=== PATIENT | male | born 1960 | race Caucasian/White ===

== ENCOUNTER 2016-04-22 07:01 | Outpatient (CLI) | payer SELFPAY ==
[~2016-04-22] VITALS: Ht 180.3 cm; Wt 102.5 kg
[~2016-04-22 07:01] MED LIST: ASP81CT PO; DCS100C PO; HYDR-3454 PO; METO50TA7 PO; PRAV80TA2 PO
--- OUTSIDE RECORDS SUMMARY | 2016-04-22 07:06 | XMS REPORT | Continuity of Care Document ---
Author Author [facility] Organization [facility] Address Unknown Phone Unavailable Care Team Providers Care Summer Law Associate Name Role Phone PRAFUL DODD MD PCP Insurance Providers Payer Name Policy Number Subscriber Name Relationship Self Pay Jem Dennis 18 Self / Same As Patient Advance Directives Directive Response Recorded Date/Time Advance Directives No 11/01/13 8:42am Health Care Power of Assurance Manager Insurance No 11/01/13 8:42am Organ Donor No 11/01/13 8:42am Resuscitation Status Full Code 11/01/13 8:42am Problems No known problems or medical conditions. Medications Medication Dose Route Sig Days/Qty Instructions Order Date Discontinued Date Status Aspirin 81 Mg PO DAILY 07/03/10 08/07/13 Discontinued Metoprolol Succinate 50 Mg PO DAILY 07/03/10 08/07/13 Discontinued Pravastatin Sodium 40 Mg PO DAILY 07/03/10 08/07/13 Discontinued Docusate Sodium 1 Cap PO TWICE A DAY PRN CONSTIPATION 60 Qty 11/01/13 Active Hydrocodone Bit/Acetaminophen 1 Tab PO EVERY 4HRS PRN PAIN 30 Qty 11/01 Active Social History Social History Problem Response Recorded Date/Time Smoking Status Never a Smoker 11/01/2013 8:41am Query Response Start Date Stop Date Smoking Status Never a Smoker Hospital Discharge Instructions No hospital discharge instructions. Plan of Care No plan of care. Functional Status No functional status results. Allergies, Adverse Reactions, Alerts Allergen Type Severity Reaction Status Last Updated No Known Drug Allergies Active 07/02/10 Immunizations No immunization records. Vital Signs Acute Vital Signs Vital Response Date/Time Temperature (Fahrenheit) 98.0 degrees F (97.6 - 99.5) Temperature (Calculated Celsius) 36.57489 degrees C (36.4 - 37.5) Temperature Source Tympanic Pulse Rate (adult) 65 bpm (60 - 90) Respiratory Rate 16 bpm (12 - 24) O2 Sat by Pulse Oximetry 99 % (88 - 100) Blood Pressure 120/82 mm Hg Pain Pain Intensity 0 Height (Feet) 5 feet Height (Inches) 11.00 inches Height (Calculated Centimeters) 180.424260 cm Weight (Pounds) 226 pounds Weight (Calculated Grams) 081410.877 gm Weight (Calculated Kilograms) 102.207709 kilograms Height 5 ft 11 in Weight 226 lb Body Mass Index 31.5 kg/m^2 Results Test Source Date Result Interp. Ref. Range Comments Activated Partial Thromboplast Time July 02, 2010 5:00pm 26 SEC N 24- 35 Alanine Aminotransferase (ALT/SGPT) July 03, 2010 5:45am 59 U/L N 30- 65 Albumin July 03, 2010 5:45am 3.4 G/DL N 3.4-5.0 Alkaline Phosphatase July 03, 2010 5:45am 43 U/L L 50-136 Aspartate Amino Transf (AST/SGOT) July 03, 2010 5:45am 24 U/L N 15-37 BUN/Creatinine Ratio July 03, 2010 5:45am 14 - Basophils # (Auto) October 31, 2013 8:30am 0.0 10^3/uL N 0.0-0.1 Basophils (%) (Auto) October 31, 2013 8:30am 0 % N 0-10 Blood Urea Nitrogen July 03, 2010 5:45am 15 MG/DL N 7-18 Calcium Level July 03, 2010 5:45am 8.4 MG/DL L 8.5-10.1 Carbon Dioxide Level July 03, 2010 5:45am 26 MMOL/L N 21-32 Chloride Level July 03, 2010 5:45am 107 MMOL/L N 101-110 Cholesterol Level July 03, 2010 5:45am 221 MG/DL H -200 Creatinine July 03, 2010 5:45am 1.1 MG/DL N 0.6-1.3 Eosinophils # (Auto) October 31, 2013 8:30am 0.2 10^3/uL N 0.0-0.3 Eosinophils (%) (Auto) October 31, 2013 8:30am 3 % N 0-10 Glucose Level July 03, 2010 5:45am 98 MG/DL N 70-126 HDL Cholesterol July 03, 2010 5:45am 31 MG/DL L 35-60 Hematocrit October 31, 2013 8:30am 42 % N 40-54 Hemoglobin October 31, 2013 8:30am 14.4 G/DL N 13.3-17.7 LDL Cholesterol July 03, 2010 5:45am 160 MG/DL H 0-129 Lymphocytes # (Auto) October 31, 2013 8:30am 2.7 X 10^3 N 1.0-4.0 Lymphocytes (%) (Auto) October 31, 2013 8:30am 41 % N 12-44 Magnesium Level July 02, 2010 5:00pm 2.0 MG/DL N 1.8-2.4 Mean Corpuscular Hemoglobin October 31, 2013 8:30am 32 PG N 25-34 Mean Corpuscular Hemoglobin Concent October 31, 2013 8:30am 35 G/DL N 32- 36 Mean Corpuscular Volume October 31, 2013 8:30am 94 FL N 80-99 Mean Platelet Volume October 31, 2013 8:30am 10.7 FL H 7.4-10.4 Monocytes # (Auto) October 31, 2013 8:30am 0.7 X 10^3 N 0.0-1.0 Monocytes (%) (Auto) October 31, 2013 8:30am 10 % N 0-12 Myoglobin July 02, 2010 5:00pm 62 UG/L N 10-92 Neutrophils # (Auto) October 31, 2013 8:30am 3.1 X 10^3 N 1.8-7.8 Neutrophils (%) (Auto) October 31, 2013 8:30am 47 % N 42-75 Platelet Count October 31, 2013 8:30am 191 10^3/uL N 130-400 Potassium Level July 03, 2010 5:45am 4.3 MMOL/L N 3.6-5.0 Prothromb Time International Ratio July 02, 2010 5:00pm 1.0 N 0.8-1.4 INTERPRETIVE DATASUGGESTED THERAPEUTIC RANGE FOR INR'S: VENOUS THROMBOSIS, PULMONARY EMBOLISM, OR PREVENTION OF SYSTEMIC EMBOLISM (EG. IN ATRIAL FIBRILLATION): 2.0 - 3.0 MECHANICAL PROSTHETIC HEART VALVES: 2.5 - 3.5* *NOTE: INR'S UP TO 4.5 MAY BE NECESSARY IN SELECTED GROUPS OF HIGH RISK PATIENTS. SIXTH [place] [employer]ST [employer]ANS CONSENSUS CONFERENCE ON ANTITHROMBOTIC THERAPY (2000). Prothrombin Time July 02, 2010 5:00pm 13.4 SEC N 12.2-14.7 Red Blood Count October 31, 2013 8:30am 4.45 10^6/uL N 4.35-5.85 Red Cell Distribution Width October 31, 2013 8:30am 12.9 % N 10.0-14.5 Sodium Level July 03, 2010 5:45am 140 MMOL/L N 135-145 Thyroid Stimulating Hormone (TSH) July 03, 2010 5:45am 0.87 UIU/ML N 0.34-5.60 Total Bilirubin July 03, 2010 5:45am 0.6 MG/DL N 0.0-1.0 Total Protein July 03, 2010 5:45am 6.6 G/DL N 6.4-8.2 Triglycerides Level July 03, 2010 5:45am 149 MG/DL N 30.0-150.0 Troponin I July 03, 2010 5:45am < 0.10 MG/ML 0.00-0.10 VLDL Cholesterol July 03, 2010 5:45am 30 MG/DL N 5-40 White Blood Count October 31, 2013 8:30am 6.7 10^3/uL N 4.3-11.0 Lab Scanned Report July 03, 2010 11:55am Referred Lab Report [id number] - Estimat Glomerular Filtration Rate July 02, 2010 5:00pm > 60 - GFR INTERPRETIVE DATA UNITS FOR ESTIMATED GFR (eGFR): mL/min/1.73 M2 REFERENCE RANGE FOR ESTIMATED GFR (eGFR) eGFR NORMAL eGFR >60 MODERATELY DECREASED eGFR 30-59 SEVERLY DECREASED eGFR 15-29 KIDNEY FAILURE <15 (OR DIALYSIS) Creatine Kinase July 03, 2010 5:45am 85 U/L N 1-205 Cardiac Panel Pathologist Review July 02, 2010 5:00pm SEE CARDIAC PATH REV - MRSA Screen Nasal August 07, 2013 3:20pm MRSA not isolated Procedures Procedure Status Date Provider(s) Repair of umbilical hernia in adult completed 11/01/13 ISAÍAS RICH DO Encounters Encounter Location Date/Time Registered Clinic Via [facility] 10/31/13 8:09am
== END 2016-04-22 15:06 ==
LOC: PREOP 07:01
PROVIDERS: ATTEND Internal Medicine
DX: Z01.818 Encounter for other preprocedural examination (principal); Z12.11 Encounter for screening for malignant neoplasm of colon

== ENCOUNTER → 2016-04-23 | Day surgery (SDC) | payer BC ==
[~2016-04-23] VITALS: Ht 180.3 cm; Wt 102.5 kg
[~2016-04-23] MED LIST changes: +1/2 NS IV SOLUTION 1,000 ML IV STA; +FLUMAZENIL (ROMAZICON) 0.1 MG/ML 5 ML VIAL INJ PRN; +LIDOCAINE JELLY 2% (XYLOCAINE) 5 ML TUBE MM PRN; +LIDOCAINE JELLY 2% (XYLOCAINE) 5 ML TUBE ONE; +MIDAZOLAM 2 MG/2 ML (VERSED) VIAL IVP PRN; +MIDAZOLAM 2 MG/2 ML (VERSED) VIAL ONE; +NALOXONE 0.4 MG/ML 1 ML (NARCAN) VIAL IVP PRN; +NS (IVPB) 50 ML ONE; +ceFAZolin 1,000 MG (ANCEF) VIAL ONE; +ceFAZolin INJECTION 1,000 MG in NS (IVPB) 50 ML IV ONE; +fentaNYL INJECTION 100 MCG/2 ML AMP ONE
--- OUTSIDE RECORDS SUMMARY | 2016-04-23 08:12 | XMS REPORT | Continuity of Care Document ---
Author Author [facility] Organization [facility] Address Unknown Phone Unavailable Care Team Providers Care Sea Shell Gatherer Name Role Phone PRAFUL DODD MD PCP Insurance Providers Payer Name Policy Number Subscriber Name Relationship Self Pay Jem Dennis 18 Self / Same As Patient Advance Directives Directive Response Recorded Date/Time Advance Directives No 11/01/13 8:42am Health Care Power of Emergency Response Coordinator No 11/01/13 8:42am Organ Donor No 11/01/13 [...] F (97.6 - 99.5) Temperature (Calculated Celsius) 36.89038 degrees C (36.4 - 37.5) Temperature Source Tympanic Pulse Rate (adult) 65 bpm (60 - 90) Respiratory Rate 16 bpm (12 - 24) O2 Sat by Pulse Oximetry 99 % (88 - 100) Blood Pressure 120/82 mm Hg Pain Pain Intensity 0 Height (Feet) 5 feet Height (Inches) 11.00 inches Height (Calculated Centimeters) 180.502115 cm Weight (Pounds) 226 pounds Weight (Calculated Grams) 067656.877 gm Weight (Calculated Kilograms) 102.011729 kilograms Height 5 ft 11 in Weight [...] SELECTED GROUPS OF HIGH RISK PATIENTS. SIXTH [place] [employer] CONSENSUS CONFERENCE ON [...] July 03, 2010 11:55am Referred Lab Report [id number] - Estimat Glomerular Filtration Rate July 02, [...] Encounters Encounter Location Date/Time Registered Clinic Via [facility] 10/31/13 8:09am
--- OUTSIDE RECORDS SUMMARY | 2016-04-23 08:15 | XMS REPORT | Continuity of Care Document ---
Author Author [facility] Organization [facility] Address Unknown Phone Unavailable Care Team Providers Care Domestic Maid Name Role Phone PRAFUL DODD MD PCP Insurance Providers Payer Name Policy Number Subscriber Name Relationship Self Pay Jem Dennis 18 Self / Same As Patient Advance Directives Directive Response Recorded Date/Time Advance Directives No 11/01/13 8:42am Health Care Power of Industrial Rehabilitation Consultant No 11/01/13 8:42am Organ Donor No 11/01/13 [...] F (97.6 - 99.5) Temperature (Calculated Celsius) 36.03131 degrees C (36.4 - 37.5) Temperature Source Tympanic Pulse Rate (adult) 65 bpm (60 - 90) Respiratory Rate 16 bpm (12 - 24) O2 Sat by Pulse Oximetry 99 % (88 - 100) Blood Pressure 120/82 mm Hg Pain Pain Intensity 0 Height (Feet) 5 feet Height (Inches) 11.00 inches Height (Calculated Centimeters) 180.406615 cm Weight (Pounds) 226 pounds Weight (Calculated Grams) 038147.877 gm Weight (Calculated Kilograms) 102.794279 kilograms Height 5 ft 11 in Weight [...] SELECTED GROUPS OF HIGH RISK PATIENTS. SIXTH [place] COL[employer] OF CHEST PH[employer]ICIANS CONSENSUS CONFERENCE ON [...] July 03, 2010 11:55am Referred Lab Report [id number] - Estimat Glomerular Filtration Rate July 02, [...] Encounters Encounter Location Date/Time Registered Clinic Via [facility] 10/31/13 8:09am
[2016-04-23 09:13] VITALS: BP 115/86
--- NOTE | 2016-04-23 09:30 | Pre-Op Note & Conscious Sedat ---
Pre-Operative Progress Note H&P Reviewed The H&P was reviewed, patient examined and no changes noted. Date H&P Reviewed: Apr 23, 2016 Time H&P Reviewed: 09:26 Conscious Sedation Pre-Proced ASA Class: 2 Airway Mallampati Classification: (nikolai appropriate class) I. II. III, IV Lungs Heart ASA score ASA 1: a normal healthy patient ASA 2: a patient with a mild systemic disease (mid diabetes, controlled hypertension, obesity ASA 3: a patient with a severe systemic disease that limits activity (angina , COPD, prior Myocardial infarction) ASA 4: a patient with an incapacitating disease that is a constant threat to life (CHF, renal failure) ASA 5: a moribund patient not expected to survive 24 hrs. (ruptured aneurysm) ASA 6: a declared brain patient whose organs are being harvested. For emergent operations, add the letter E after the classification Grade 3 Sedation Plan: Analgesia, Amnesia, Plan communicated to team members, Discussed options with patient/fam, Discussed risks with patient/fam Note The patient is an appropriate candidate to undergo the planned procedure, sedation, and anesthesia. The patient immediately re-assessed prior to indication. JORGE FONSECA MD Apr 23, 2016 09:30
[2016-04-23] MEDS: fentaNYL INJECTION 100 MCG/2 ML AMP IVP PRN ×2 (09:36→09:39)
[2016-04-23 10:25] VITALS: BP 113/75
[2016-04-23 11:00] VITALS: BP 114/82
[2016-04-23 13:02] VITALS: BP 114/82
--- NOTE | 2016-04-25 12:30 | PROCEDURE REPORT ---
PROCEDURE PHYSICIAN: JORGE FONSECA DATE OF PROCEDURE: 04/23/2016 INDICATION FOR THE PROCEDURE: Screening colonoscopy. PROCEDURE: The patient was placed in the left lateral decubitus position. Prior to undergoing colonoscopy, digital rectal evaluation was performed. Anal sphincter tone was normal and the perianal reflex was intact. The prostate was normal in size, anodular and nontender to digital inspection. Anal sphincter tone was normal and no other abnormalities were noted to digital inspection of the anal canal or distal rectal vault. The colonoscope was then inserted into the rectum and under direct visualization, advanced to cecum. The cecum was identified by identification of the ileocecal valve and cecal strap. Photographic patient was obtained. A careful inspection was made as the colonoscope was withdrawn. The patient tolerated the procedure well. FINDINGS: There no evidence for internal or external hemorrhoids. The rectum was unremarkable. Present in the distal sigmoid colon was a diminutive hyperplastic appearing polyp. It was photographed, biopsied and ablated, with no subsequent blood loss and it was submitted for histopathology. Several small sigmoid diverticulum were present, without evidence for diverticulitis. No other sigmoid colonic abnormalities were appreciated. The descending colon, splenic flexure, transverse colon were unremarkable. Present at the hepatic flexure was a diminutive hyperplastic appearing polyp. It was photographed, biopsied and ablated, and submitted for histopathology. There was no subsequent blood loss. The ascending colon and cecum were unremarkable. ASSESSMENT: 1. Mild diverticular disease was noted confined to the sigmoid colon without evidence for diverticulitis. 2. Two diminutive hyperplastic appearing polyps were noted and subsequently removed via hot forceps and submitted for histopathology. One located in the hepatic flexure and the other in the distal sigmoid colon. 3. As long as there are no surprises on histopathology report, will advocate consideration for repeat screening colonoscopy in 10 years. Job ID: [id number] Dictated Date: 04/23/2016 19:20:37 Creative Arts Therapist Date: 04/25/2016 12:25:09 / victorina YANEZ
== END | disposition home or self-care (01) ==
LOC: ENDO 08:09
PROVIDERS: ATTEND Internal Medicine
DX: Z12.11 Encounter for screening for malignant neoplasm of colon (principal); K63.5 Polyp of colon; K57.30 Diverticulosis of large intestine without perforation or abscess without bleeding
CPT/HCPCS: 88305

== ENCOUNTER → 2016-04-26 | Outpatient (CLI) | payer BC ==
[~2016-04-26] MED LIST changes: -1/2 NS IV SOLUTION 1,000 ML IV STA; -FLUMAZENIL (ROMAZICON) 0.1 MG/ML 5 ML VIAL INJ PRN; -LIDOCAINE JELLY 2% (XYLOCAINE) 5 ML TUBE MM PRN; -LIDOCAINE JELLY 2% (XYLOCAINE) 5 ML TUBE ONE; -MIDAZOLAM 2 MG/2 ML (VERSED) VIAL IVP PRN; -MIDAZOLAM 2 MG/2 ML (VERSED) VIAL ONE; -NALOXONE 0.4 MG/ML 1 ML (NARCAN) VIAL IVP PRN; -NS (IVPB) 50 ML ONE; -ceFAZolin 1,000 MG (ANCEF) VIAL ONE; -ceFAZolin INJECTION 1,000 MG in NS (IVPB) 50 ML IV ONE; -fentaNYL INJECTION 100 MCG/2 ML AMP ONE
--- OUTSIDE RECORDS SUMMARY | 2016-04-26 09:58 | XMS REPORT | Continuity of Care Document ---
Author Author [facility] Organization [facility] Address Unknown Phone Unavailable Care Team Providers Care Rouge Mixer Name Role Phone PRAFUL DODD MD PCP Insurance Providers Payer Name Policy Number Subscriber Name Relationship Self Pay Jem Dennis 18 Self / Same As Patient Advance Directives Directive Response Recorded Date/Time Advance Directives No 11/01/13 8:42am Health Care Power of Small Business Banking Officer No 11/01/13 8:42am Organ Donor No 11/01/13 [...] F (97.6 - 99.5) Temperature (Calculated Celsius) 36.59320 degrees C (36.4 - 37.5) Temperature Source Tympanic Pulse Rate (adult) 65 bpm (60 - 90) Respiratory Rate 16 bpm (12 - 24) O2 Sat by Pulse Oximetry 99 % (88 - 100) Blood Pressure 120/82 mm Hg Pain Pain Intensity 0 Height (Feet) 5 feet Height (Inches) 11.00 inches Height (Calculated Centimeters) 180.562671 cm Weight (Pounds) 226 pounds Weight (Calculated Grams) 240996.877 gm Weight (Calculated Kilograms) 102.088287 kilograms Height 5 ft 11 in Weight [...] SELECTED GROUPS OF HIGH RISK PATIENTS. SIXTH [place] [employer] OF CHEST PHYSICIANS CONSENSUS CONFERENCE ON [...] July 03, 2010 11:55am Referred Lab Report [id number] - Estimat Glomerular Filtration Rate July 02, [...] Encounters Encounter Location Date/Time Registered Clinic [facility] 10/31/13 8:09am
--- NOTE | 2016-04-29 12:12 | ECHOCARDIOGRAPHY REPORT ---
PROCEDURE PHYSICIAN: JORGE FONSECA DATE OF PROCEDURE: 04/26/2016 TWO DIMENSIONAL ECHOCARDIOGRAM REPORT PRIMARY PHYSICIAN: OTHER PHYSICIAN: REFERRING PHYSICIAN: ORDERING PHYSICIAN: INDICATION FOR THE PROCEDURE: History of bicuspid aortic valve with aortic stenosis, follow-up study MEASUREMENTS DERIVED VALUES LV DIAMETER (LAX) NORMALS NORMALS Diastolic 5.4 (3.6-5.2) Eject. Fract. 0.60 (60%+/-6%) Systolic 3.7 (2.3-3.9) Diastolic Vol. % Shortening 0.30 (0.22-0.42) Systolic Vol. Aortic Root IVS THICKNESS Diastolic 1.5 (0.6-1.1) LVPW THICKNESS Diastolic 1.4 (0.6-1.1) LA DIAMETER Systolic 4. (2.1-3.7) COMMENTS AND RECOMMENDATIONS: 1. Fair technical quality. 2. Biventricular systolic function is normal with an estimated left ventricular ejection fraction of 60%. No segmental wall motion abnormalities are identified. 3. Moderate concentric left ventricular hypertrophy is present. 4. The aortic valve is heavily calcified and not well visualized. Continuous wave Doppler waveforms are of good quality and moderate to severely elevated with a peak gradient of 95 and a mean gradient of 63 mmHg giving a calculated valve area of 1 sq cm indicative of severe aortic stenosis. There has been progression since his patient's last study done in 2010. Aortic insufficiency judged to be of mild severity is present. 5. Mild mitral and tricuspid insufficiency are present. Right ventricular systolic pressure is estimated at 30 mmHg. The inferior vena cava is dilated at 2.4 cm in diameter, but does collapse more than 50% on inspiration. 6. The left atrium is mildly dilated. The left ventricle is at the upper limits normal with normal right-sided cardiac chamber dimensions. 7. Doppler interrogation of left ventricular inflow does suggest underlying diastolic dysfunction. The E:A ration was 1. 8. Moderate mitral annular calcification is present. There is no evidence for mitral stenosis. No significant tricuspid or pulmonic valve abnormalities were noted on 2-D viewing, color flow or continuous wave Doppler interrogation. 9. There is no evidence for intracardiac shunt. 10. There is no evidence for pericardial effusion. ASSESSMENT: Biventricular systolic function is normal with an estimated left ventricular ejection fraction of 60%. The Aortic valve is heavily calcified and not well visualized. The peak gradient is severely elevated as was the mean gradient at the 95 mmHg and 63 mmHg respectively. The estimated valve area is 1 sq cm, indicative of severe aortic stenosis. Moderate concentric left ventricular hypertrophy is present. The interventricular chamber dimensions of the left ventricle are at the upper limits of normal for size. The left atrium is mildly dilated and right-sided heart chamber dimensions are within normal limits. Mild aortic and tricuspid insufficiency are present. RV systolic pressure was estimated at 30 mmHg. The inferior vena cava was dilated measuring 2.4 cm in diameter. However, it did collapse more than 50% on inspiration. There has been progression of this patient's aortic stenosis in comparison to a study done in 2010. Job ID: [id number] Dictated Date: 04/28/2016 16:18:00 Wastewater Plant Civil Engineer Date: 04/29/2016 12:00:30 / victorina YANEZ
== END ==
LOC: CARD 09:54
PROVIDERS: ATTEND Internal Medicine
DX: I35.2 Nonrheumatic aortic (valve) stenosis with insufficiency (principal)
CPT/HCPCS: 93306

== ENCOUNTER → 2016-04-26 | Outpatient (CLI) | payer BC ==
--- OUTSIDE RECORDS SUMMARY | 2016-04-26 14:55 | XMS REPORT | Continuity of Care Document ---
Author Author [facility] Organization [facility] Address Unknown Phone Unavailable Care Team Providers Care Planning Division Superintendent Name Role Phone PRAFUL DODD MD PCP Insurance Providers Payer Name Policy Number Subscriber Name Relationship Self Pay Jem Dennis 18 Self / Same As Patient Advance Directives Directive Response Recorded Date/Time Advance Directives No 11/01/13 8:42am Health Care Power of Retail Clerk No 11/01/13 8:42am Organ Donor No 11/01/13 [...] F (97.6 - 99.5) Temperature (Calculated Celsius) 36.22433 degrees C (36.4 - 37.5) Temperature Source Tympanic Pulse Rate (adult) 65 bpm (60 - 90) Respiratory Rate 16 bpm (12 - 24) O2 Sat by Pulse Oximetry 99 % (88 - 100) Blood Pressure 120/82 mm Hg Pain Pain Intensity 0 Height (Feet) 5 feet Height (Inches) 11.00 inches Height (Calculated Centimeters) 180.260897 cm Weight (Pounds) 226 pounds Weight (Calculated Grams) 134350.877 gm Weight (Calculated Kilograms) 102.502856 kilograms Height 5 ft 11 in Weight [...] SELECTED GROUPS OF HIGH RISK PATIENTS. SIXTH [place] [employer] OF CHEST PH[employer]IANS CONSENSUS CONFERENCE ON [...] July 03, 2010 11:55am Referred Lab Report [id number] - Estimat Glomerular Filtration Rate July 02, [...] Encounters Encounter Location Date/Time Registered Clinic Via [facility] 10/31/13 8:09am
--- NOTE | 2016-04-26 18:26 | Diagnostic Imaging Report ---
PROCEDURE: US Carotid Duplex Bilateral. TECHNIQUE: Multiple real-time grayscale images were obtained over the carotid arteries in various projections bilaterally. Additional duplex Doppler and color Doppler images were also obtained. INDICATION: Amaurosis fugax. FINDINGS: Bilateral calcified atherosclerotic plaque is seen in the proximal internal carotid artery bilaterally. Color flow demonstrates patency of the common, internal and external carotid arteries on both sides. The vertebral arches demonstrate antegrade flow bilaterally. Peak systolic velocities in the right ICA are 91, 75 and 83 cm/sec from proximal to distal and on the left 62, 80 and 76 cm/sec from proximal to distal. ICA over CCA ratios are up to 1 on the right side and up to 0.9 on the left. IMPRESSION: Atherosclerotic plaque at the proximal internal carotid arteries on both sides. The estimated underlying stenosis is in the range between 25-40% bilaterally. Dictated by: Dictated on workstation # [id number]
== END ==
LOC: RAD 14:52
PROVIDERS: ATTEND Internal Medicine
DX: G45.3 Amaurosis fugax (principal)
CPT/HCPCS: 93880

== ENCOUNTER → 2017-04-19 | Outpatient (CLI) | payer BC ==
--- NOTE | 2017-04-19 11:54 | Diagnostic Imaging Report ---
PROCEDURE: MRI right joint upper extremity without contrast. TECHNIQUE: Multiplanar, multisequence non contrast-enhanced MRI of the right upper extremity was accomplished. INDICATION: Shoulder pain. There are no prior studies available for comparison. FINDINGS: The T2 fat-saturated coronal series shows diffuse areas of abnormal signal throughout the rotator cuff. I do feel that most of the rotator cuff is torn. The supraspinatus muscle is bunched but not fully retracted. Furthermore, there is hypertrophy of the acromioclavicular joint and there is a fair amount of fluid within the acromioclavicular joint. The fluid within the joint does suggest that there is an element of inflammation of the joint as well. There is also some narrowing of the outlet for the supraspinatus muscle due to the acromioclavicular hypertrophy. The biceps tendon and the subscapularis tendon are intact. The labrum is thinned posteriorly and most likely torn on a degenerative basis. There is no abnormal signal arising from the osseous structures to suggest bone edema or a fracture. There is a very small amount of fluid within the glenohumeral joint and in the subacromial and subdeltoid bursa. There is also generalized increased signal throughout the deltoid musculature on the proton dense fat-saturated series. This does suggest edema/inflammation. There is also some fluid in the bursa anterior to the shoulder joint and most likely there is an element of bursitis present. IMPRESSION: 1. The irregular appearance of the rotator cuff would indicate that the rotator cuff is nearly completely torn. The supraspinatus muscle is bunched but not fully retracted. 2. There is hypertrophy of the acromioclavicular joint and this does result in narrowing of the outlet for the supraspinatus muscle. The fluid within the acromioclavicular joint also suggests that there is inflammation of the joint. 3. The labrum is thinned posteriorly and most likely torn on a degenerative basis. 4. There is no acute bony abnormality identified. 5. There is edema/inflammation of the deltoid muscle. Dictated by: Dictated on workstation # [id number]
== END ==
LOC: RAD 07:04
PROVIDERS: ATTEND Orthopaedic Surgery
DX: S46.011A Strain of muscle(s) and tendon(s) of the rotator cuff of right shoulder, initial encounter (principal); M89.311 Hypertrophy of bone, right shoulder; M94.8X1 Other specified disorders of cartilage, shoulder
CPT/HCPCS: 73221

== ENCOUNTER 2017-06-02 05:36 | Outpatient (CLI) | payer BC ==
[~2017-06-02] VITALS: Ht 180.3 cm; Wt 90.7 kg
[2017-06-02] MEDS ORDERED: ROSU10TA26 PO (10:22)
== END 2017-06-02 10:36 ==
LOC: PREOP 05:36
PROVIDERS: ATTEND Surgery
DX: Z01.818 Encounter for other preprocedural examination (principal); K40.90 Unilateral inguinal hernia, without obstruction or gangrene, not specified as recurrent

== ENCOUNTER 2017-06-06 07:19 | Day surgery (SDC) | payer BC ==
[~2017-06-06] VITALS: Ht 180.3 cm; Wt 90.7 kg
[~2017-06-06 07:19] MED LIST changes: +ROSU10TA26 PO
[2017-06-06] MEDS ORDERED: LIDOCAINE 1% INJ 20 ML (XYLOCAINE) VIAL ONE (07:44)
[2017-06-06] MEDS ORDERED: ceFAZolin 2 GM IV Premixed 50 ML IV ONE (07:45)
[2017-06-06] MEDS ORDERED: BUPIVACAINE 0.5% 30 ML (SENSORCAINE) VIAL ONE (07:45)
[2017-06-06] MEDS ORDERED: proPOfol 200 MG/20 ML (DIPRIVAN) VIAL IV ONE (08:05)
[2017-06-06] MEDS ORDERED: MIDAZOLAM 2 MG/2 ML (VERSED) VIAL ONE (08:05)
[2017-06-06] MEDS ORDERED: SEVOFLURANE (ULTANE) 15 ML INHAL SOLN ONE (08:05)
[2017-06-06] MEDS ORDERED: fentaNYL INJECTION 100 MCG/2 ML AMP ONE (08:05)
[2017-06-06] MEDS ORDERED: LIDOCAINE PF 2% 5 ML (XYLOCAINE) VIAL ONE (08:05)
[2017-06-06] MEDS ORDERED: DEXAMETHASONE 10 MG/ML (DECADRON) 1 ML VIAL ONE (08:05)
[2017-06-06] MEDS ORDERED: ROCURONIUM 10 MG/ML 5 ML SYRINGE IV ONE (08:05)
[2017-06-06] MEDS ORDERED: ONDANSETRON 4 MG/2 ML (SDV) Z0FRAN ONE (08:05)
[2017-06-06 08:14] VITALS: BP 105/70
[2017-06-06] MEDS: LACTATED RINGERS 1,000 ML IV PRN ×2 (08:14→09:22)
[2017-06-06] MEDS ORDERED: ASPI-586 PO (08:47)
[2017-06-06] MEDS ORDERED: NORCO PO (08:49)
--- NOTE | 2017-06-06 08:59 | Progress Note-Pre Operative ---
Pre-Operative Progress Note H&P Reviewed The H&P was reviewed, patient examined and no changes noted. Date Seen by Provider: Jun 06, 2017 Time Seen by Provider: 08:30 Date H&P Reviewed: Jun 06, 2017 Time H&P Reviewed: 08:30 Pre-Operative Diagnosis: left inguinal hernia ISAÍAS RICH DO Jun 06, 2017 08:59
[2017-06-06] MEDS ORDERED: GLYCOPYRROLATE 0.2 MG/ML (ROBINUL) 2 ML VIAL ONE (09:55)
[2017-06-06] MEDS ORDERED: NEOSTIGMINE 1 MG/ML 5 ML SYRINGE ONE (09:55)
--- NOTE | 2017-06-06 09:59 | Discharge Inst-Simple/Standard ---
Discharge Inst-Standard Patient Instructions/Follow Up Plan of Care/Instructions/FU: 2-3 weeks Braden Activity as Tolerated: No Discharge Diet: Regular Diet Other Inst to Patient Follow up Appt: Make appointment for 2-3 week. Instructions: No lifting greater than 10 pounds. No strenuous activity. May shower in 24 hours, no tub bath or soaking. Use incentive spirometer at home as directed. No Smoking Skin/Wound Care: You have special glue over incision it will fall off on its own. Symptoms to Report: Appetite Changes, Extremity Discoloration, Numbness/Tingling, Swelling Increased , Bleeding Excessive, Eyesight Changes, Pain Increased, Urine Color Change, Constipation(Persistent), Fever over 101 degree F, Pain/Pressure in chest, Urinating Difficulty, Cough Up/Vomit Blood, Heart Beat Irreg/Pounding, Pain/ Pressure in jaw, Vaginal Bleeding Increase, Cramps in feet or legs, Lightheadedness, Pain/Pressure in shoulder, Diarrhea(Persistent), Memory Changes Suddenly, Questions/Concerns, Weight gain consecutive days, Dizziness/ Fainting, Nausea/Vomiting, Shortness of Breath, Weight gain over 2 pounds If questions or concerns contact your physician Or seek help at emergency department. ISAÍAS RICH DO Jun 06, 2017 09:58
[2017-06-06] MEDS ORDERED: HYDROcodone/APAP 5 MG/325 MG (LORTAB) TAB PO PRN (10:00)
--- NOTE | 2017-06-06 10:03 | Progress Note-Post Operative ---
Post-Operative Progess Note Surgeon (s)/Marketing Information Coordinator (s) Surgeon ISAÍAS RICH DO Marketing Information Coordinator: Dr. Pulido Pre-Operative Diagnosis left inguinal hernia Post-Operative Diagnosis direct and indirect left inguinal hernia, cord lipoma Procedure & Operative Findings Date of Procedure 06/06/17 Procedure Performed/Findings left inguinal hernia repair and excision cord lipoma Anesthesia Type gen Estimated Blood Loss Estimated blood loss (mL): min Specimens/Packing Specimens Removed cord lipoma hernia sac ISAÍAS RICH DO Jun 06, 2017 10:03
[2017-06-06] MEDS ORDERED: ONDANSETRON 4 MG/2 ML (SDV) Z0FRAN IVP PRN (10:15)
[2017-06-06] MEDS ORDERED: HYDROmorphone (DILAUDID) 2 MG/ML VIAL IVP PRN (10:15)
[2017-06-06] MEDS ORDERED: MEPERIDINE (DEMEROL) INJ 50 MG/ML IVP PRN (10:15)
[2017-06-06] MEDS: morphine INJ 10 MG/ML 1ML (SYR OR VIAL) IVP PRN ×2 (10:19→10:27)
[2017-06-06 11:00] VITALS: BP 121/85
[2017-06-06 11:30] VITALS: BP 127/87
[2017-06-06 12:15] VITALS: BP 110/88
[2017-06-06 12:41] VITALS: BP 110/88
--- NOTE | 2017-06-06 14:37 | Anesthesia-General Post-Op ---
General Patient Condition Mental Status/LOC: Same as Preop Cardiovascular: Satisfactory Nausea/Vomiting: Absent Respiratory: Satisfactory Pain: Controlled Complications: Absent Post Op Complications Complications None Follow Up Care/Instructions Patient Instructions None needed. Anesthesia/Patient Condition Patient Condition Patient was seen after surgery and was doing well, no complaints, stable vital signs, no apparent adverse anesthesia problems. TL HOLT DO Jun 06, 2017 14:37
--- NOTE | 2017-06-06 21:29 | OPERATIVE REPORT ---
DATE OF SERVICE: 06/06/2017 PREOPERATIVE DIAGNOSIS: Left inguinal hernia. POSTOPERATIVE DIAGNOSIS: Direct and indirect inguinal hernia with a cord lipoma. PROCEDURE: Left inguinal hernia repair with excision of cord lipoma. SURGEON: Isaías Feliciano DO ONCOLOGY PHYSICIAN ASSISTANT: Dr. Pulido, assisted in retraction, dissection and closure. ANESTHESIA: General. ESTIMATED BLOOD LOSS: Minimal. COMPLICATIONS: None. INDICATIONS: The patient is a 56-year-old male with left inguinal hernia. He understands risks and benefits of procedure and wished to proceed with procedure. Consent was on chart. DESCRIPTION OF PROCEDURE: The patient was taken to the operating suite. He was prepped and draped in sterile fashion. Surgical pause was performed. Incision was made in left lower quadrant and dissection was taken down to subcutaneous tissue to the external oblique. The external oblique was then opened out through the external ring. The spermatic cord was then dissected around and a Martha drain was placed around it. The hernia sac was dissected off of the cord, which was then opened. There were no contents within the hernia sac. This was then ligated with 0 Vicryl suture. A cord was removed for specimen. A large cord lipoma was present, which was dissected off and removed with cautery. There was a small direct defect, which was then closed also with 0 Vicryl. The Parietex ProGrip mesh was then secured to Nitish's ligament and then incorporated around the spermatic cord and tucked under the external oblique. The wound was then irrigated with copious amounts of irrigation. The external ring was then recreated and the external oblique was closed using 2-0 Vicryl. Subcutaneous tissues were then reapproximated using 3-0 Vicryl. Skin was then closed using 4-0 absorbable suture. The area was then washed and dried and swiftSet was placed over incision. The patient tolerated procedure well without any complications, taken to recovery room in stable condition. Job ID: [id number] DocumentID: [id number] Dictated Date: 06/06/2017 13:00:33 Obedience Trainer Date: 06/06/2017 21:29:23 Dictated By: ISAÍAS FELICIANO DO
== END 2017-06-06 12:41 | disposition home or self-care (01) ==
LOC: SDC 07:19
PROVIDERS: ATTEND Surgery
DX: K40.90 Unilateral inguinal hernia, without obstruction or gangrene, not specified as recurrent (principal); D17.6 Benign lipomatous neoplasm of spermatic cord; E78.5 Hyperlipidemia, unspecified; Z79.899 Other long term (current) drug therapy
CPT/HCPCS: 87081; 94664

== ENCOUNTER 2017-10-07 08:30 | Outpatient (RCR) | payer BC ==
[~2017-10-07 08:30] MED LIST changes: +ASPI-586 PO; +NORCO PO; -ROSU10TA26 PO; +ROSU10TA27 PO
== END 2017-10-11 | disposition home or self-care (01) ==
PROVIDERS: ATTEND Nurse Practitioner Family
DX: Z47.89 Encounter for other orthopedic aftercare (principal); M25.511 Pain in right shoulder

== ENCOUNTER 2017-11-11 11:02 | Outpatient (RCR) | payer BC | END 2017-11-11 14:56 | disposition home or self-care (01) | PROVIDERS: ATTEND Nurse Practitioner Family | DX: Z47.89 Encounter for other orthopedic aftercare (principal); M25.511 Pain in right shoulder ==

== ENCOUNTER → 2017-11-15 | Outpatient (CLI) | payer BC | LOC: CARD 10:01 | PROVIDERS: ATTEND Internal Medicine | DX: R06.09 Other forms of dyspnea (principal); I35.0 Nonrheumatic aortic (valve) stenosis | CPT/HCPCS: 93017 ==

== ENCOUNTER → 2017-12-05 | Outpatient (CLI) | payer BC ==
--- NOTE | 2017-12-05 11:52 | Diagnostic Imaging Report ---
EXAMINATION: Magnetic resonance imaging of the right shoulder without contrast. DATE: December 05, 2017. COMPARISON: MRI right shoulder April 19, 2017. HISTORY: 56-year-old male, increasing right shoulder pain. History of prior surgery May 2017. TECHNIQUE: Magnetic Resonance Imaging sequences were performed of the shoulder without contrast. FINDINGS: ROTATOR CUFF, LIGAMENTS, TENDONS, AND MUSCLES: There are anchors in the superior humeral head at the site of the supraspinatus, infraspinatus, and subscapularis tendon insertions compatible with rotator cuff tendon repair. There is no full-thickness fluid filled tendon gap to suggest a complete failure of the rotator cuff tendon repair. There is increased signal and thickening of the supraspinatus, infraspinatus, and subscapularis tendons which potentially may reflect a normal postoperative related appearance of the tendons and/or tendinopathy. There is a very small approximately 5 mm wide 25% partial thickness articular sided tear of the posterior aspect of the supraspinatus tendon best illustrated on sagittal T2 sequence image 3. There is no fatty atrophy or abnormal signal within the rotator cuff musculature. LONG HEAD OF BICEPS: The intra-articular segment of the long head of the biceps tendon is not well-seen. This may potentially reflect biceps tenodesis versus a torn and retracted long head of biceps tendon. The long head of biceps tendon is normally positioned within the bicipital groove. GLENOHUMERAL JOINT: The humeral head is well positioned relative to the glenoid. The labrum is grossly intact. There is no identified paralabral cyst. The articular cartilage is grossly intact. There is no joint effusion. ACROMIOCLAVICULAR JOINT: There is widening of the acromioclavicular joint which may potentially reflect postoperative related changes and/or sequela of acromioclavicular joint separation injury. The coracoclavicular and coracoacromial ligaments are intact. There are osteophytes extending off the inferior aspect of the distal clavicle protruding approximately 3 mm. There is a small amount of fluid within the acromioclavicular joint. BONE: There is no os acromiale. There is no acute fracture, bone contusion, or evidence of osteonecrosis. BURSAE AND SOFT TISSUES: The bursae and soft tissue surrounding the shoulder are unremarkable. IMPRESSION: 1. Status post rotator cuff tendon repair without evidence of failure of the repair. 5 mm approximately 25% partial thickness tear of the articular side of the posterior aspect of the supraspinatus tendon. 2. Lack of visualization of the intra-articular segment of the long head of biceps tendon which may potentially reflect biceps tenodesis versus a torn and retracted tendon. Recommend correlation with surgical history. The long head of biceps tendon is normally positioned within the bicipital groove. 3. Widening of the acromioclavicular joint which may potentially reflect sequela of prior surgery and/or acromioclavicular joint separation injury. Intact coracoclavicular and coracoacromial ligaments. Osteophytes arising from the distal clavicle and small amount of acromioclavicular joint fluid. 4. Grossly unremarkable appearance of the glenohumeral joint. 5. No acute fracture or bone contusion. Dictated by: Dictated on workstation # [id number]
== END ==
LOC: RAD 07:57
PROVIDERS: ATTEND Nurse Practitioner Family
DX: S46.011A Strain of muscle(s) and tendon(s) of the rotator cuff of right shoulder, initial encounter (principal); M25.711 Osteophyte, right shoulder; Z98.890 Other specified postprocedural states
CPT/HCPCS: 73221

== ENCOUNTER → 2018-10-26 | Outpatient (CLI) | payer BC ==
[~2018-10-26] MED LIST changes: -ROSU10TA27 PO; +ROSU10TA28 PO
== END ==
LOC: CARD 06:47
PROVIDERS: ATTEND Internal Medicine
DX: I35.0 Nonrheumatic aortic (valve) stenosis (principal)
CPT/HCPCS: 93017

== ENCOUNTER → 2018-11-01 | Outpatient (CLI) | payer BC | LOC: CARD 13:28 | PROVIDERS: ATTEND Internal Medicine | DX: I08.3 Combined rheumatic disorders of mitral, aortic and tricuspid valves (principal) | CPT/HCPCS: 93306 ==

== ENCOUNTER 2018-11-21 06:59 | Day surgery (SDC) | payer BC ==
[~2018-11-21] VITALS: Ht 180.3 cm; Wt 104.3 kg
[2018-11-21] VITALS (10 sets, daily range): BP systolic 113–125; BP diastolic 72–94
[~2018-11-21 06:59] MED LIST changes: +HEParin (CATH LAB) 2,000 ML IV ONE; +LIDOCAINE 1% INJ 20 ML 20 ML VIAL ONE; +NS IV 1000 ML 1,000 ML ONE
[2018-11-21] MEDS ORDERED: NS IV 1000 ML 1,000 ML IV SCH ×2 (07:15→09:46)
[2018-11-21] MEDS ORDERED: RED600CA2 PO (07:21)
[2018-11-21] MEDS ORDERED: MULT1TAB69 PO (07:21)
[2018-11-21 07:22] LABS: HEMOGLOBIN 14.2 G/DL (13.3-17.7); MEAN PLATELET VOLUME 10.5 FL (7.4-10.4); RED CELL DISTRIBUTION WIDTH 13.3 % (10.0-14.5); WHITE BLOOD COUNT 7.3 10^3/uL (4.3-11.0)
[2018-11-21 07:40] LABS: ALANINE AMINOTRANSFERASE 37 U/L (0-55); ALBUMIN 4.1 GM/DL (3.2-4.5); ALKALINE PHOSPHATASE 25 U/L (40-136); BILIRUBIN,TOTAL 0.6 MG/DL (0.1-1.0); BUN/CREATININE RATIO 18; CARBON DIOXIDE 23 MMOL/L (21-32); CHLORIDE 107 MMOL/L (98-107); CHOLESTEROL 184 MG/DL (< 200); CREATININE SERUM 0.93 MG/DL (0.60-1.30); GFR ESTIMATED > 60; GLUCOSE 108 MG/DL (70-105); HDL CHOLESTEROL 43 MG/DL (40-60); POTASSIUM 4.8 MMOL/L (3.6-5.0); SODIUM 137 MMOL/L (135-145); TOTAL PROTEIN 6.7 GM/DL (6.4-8.2); TRIGLYCERIDES 187 MG/DL (<150); VLDL CHOLESTEROL 37 MG/DL (5-40)
[2018-11-21] MEDS ORDERED: MIDAZOLAM 5 MG/5 ML (VERSED) VIAL ONE (07:49)
[2018-11-21] MEDS ORDERED: fentaNYL INJECTION 100 MCG/2 ML AMP ONE (07:49)
--- NOTE | 2018-11-21 09:44 | Cardiac Procedure Note-CS/ASA ---
Pre-Procedure Note Pre-Op Procedure Note H&P Reviewed The H&P was reviewed, patient examined and no changes noted. Date H&P Reviewed: Nov 21, 2018 Time H&P Reviewed: 08:20 Conscious Sedation Pre-Proced Time 08:20 ASA Score 3 For ASA 3 and 4: Consider anesthesia and medical clearance. Also, for patients with a history of failed moderate sedation consider anesthesia. Airway Lungs Heart ASA score ASA 1: a normal healthy patient ASA 2: a patient with a mild systemic disease (mid diabetes, controlled hypertension, obesity ASA 3: a patient with a severe systemic disease that limits activity (angina, COPD, prior Myocardial infarction) ASA 4: a patient with an incapacitating disease that is a constant threat to life (CHF, renal failure) ASA 5: a moribund patient not expected to survive 24 hrs. (ruptured aneurysm) ASA 6: a declared brain- patient whose organs are being harvested. For emergent operations, add the letter E after the classification Mallampati Classification Grade 2 Sedation Plan Analgesia, Amnesia, Plan communicated to team members, Discussed options with patient/fam, Discussed risks with patient/fam The patient is an appropriate candidate to undergo the planned procedure, sedation, and anesthesia. The patient immediately re-assessed prior to indication. TORRES MCKEON MD FACP FAC CCDS Nov 21, 2018 09:44
--- NOTE | 2018-11-21 09:48 | Discharge Inst-Cardiology ---
Discharge Inst-Cardiac Problems Reviewed?: Yes Discharge Medications Continued Medications: Aspirin (Aspir 81) 81 Mg Tablet.dr 81 MG PO DAILY, TAB Multivitamin (Multivitamins) 1 Each Tablet 1 EACH PO DAILY, TAB Red Yeast Rice (Red Yeast Rice) 600 Mg Capsule 600 MG PO DAILY, CAP Rosuvastatin Calcium (Rosuvastatin Calcium) 10 Mg Tablet 10 MG PO DAILY, TAB TORRES MCKEON MD FACP FAC CCDS Nov 21, 2018 09:48
--- NOTE | 2018-11-21 09:49 | Discharge Inst-Post CATH ---
Discharge Inst-CATH/EP Problems Reviewed?: Yes Post Cardiac Cath/EP D/C Inst Follow Up/Plan F/u with Dr Shahid in 1-2 weeks F/u with Dr Zaragoza next week ACTIVITY * Go Home directly and rest. * Limit activity of the leg (or wrist if it was used) for 7 days including aerobics, swimming, jogging, bicycling, etc. * Restrict stair-climbing for 7 days if possible, if not, climb up with your non-cath leg, then bring together on the same step. * Avoid lifting, pushing, pulling or excessive movement of the affected extremity for 7 days. * Customary sexual activity may be resumed after 2 days-use caution not to use a position that strains or causes pain to the affected extremity. * No driving for 24 hours. * NO SMOKING. * Avoid straining for bowel movements for 7 days. * Gentle walking on level ground is allowed. * Returning to work will depend on the type of procedure and the results. Your doctor will discuss this with you. CALL YOUR DOCTOR FOR ANY OF THE FOLLOWING: *If bleeding from the puncture site occurs- Apply gentle pressure to site with clean cloth and call your doctor or EMS. * If a knot or lump forms under the skin, increases in size, or causes pain. * If bruising appears to be worsening or moving further down your leg instead of disappearing. * Temperature above 101 F. CARE OF YOUR GROIN INCISION; * Bruising or purple discoloration of the skin near the puncture site is common. * You may shower only, no bathtub bathing for 5 days. Be careful to avoid slipping as your leg may feel stiff. * If a closure device was used on your femoral artery, please see the attached guide regarding care of the device and your leg. * Leave dressing on FOR 24 hours. CARE OF YOUR WRIST INCISION; * Bruising or purple discoloration of the skin near the puncture site is common. * You may shower. * DO NOT submerge wrist. * Leave dressing on FOR 24 hours. TORRES SHAHID MD FACP [facility] CCDS Nov 21, 2018 09:49
[2018-11-21] MEDS ORDERED: PATIENT MAY USE OWN MEDS, ALL PO SCH (10:00)
--- NOTE | 2018-11-21 11:25 | NUR ---
phoned dr. figueroa office and made appointment and faxed face sheet, discharge to their office and informed that i didn't have any dictated procedure notes. per dr. figueroa office this rn had cd made and sent with patient and educated to take to appointment with them.
--- NOTE | 2018-11-21 12:00 | CARDIAC CATHETERIZATION ---
DATE OF SERVICE: CARDIAC CATHETERIZATION REPORT The patient is a 57-year-old man with severe aortic stenosis. He recently had an echocardiogram with Dr. Graves and that showed an aortic valve area of 0.5 cm2 and a mean gradient across the aortic valve of 71 mmHg. Left ventricular ejection fraction was 55% to 65%. Because of severe aortic stenosis and symptoms consistent with congestive heart failure, cardiac catheterization was carried out today prior to referral for consideration of valve replacement. Informed consent was obtained. DESCRIPTION OF PROCEDURE: He was brought to the cardiac catheterization laboratory in a fasting state. Right groin was prepared and draped in the usual sterile fashion. Lidocaine 1% was used for local anesthesia. Modified Seldinger technique was used to advance a 6-Namibian sheath into the right femoral artery and a 7-Namibian sheath into the right femoral vein. We used a 7-Namibian Ruby-Wojciech catheter to carry out right heart catheterization and to measure oxygen saturation in the right heart chambers. We used a pigtail catheter to try and cross the aortic valve. We were not able to cross the aortic valve. We performed aortic root angiography with the pigtail catheter. The pigtail catheter was then removed. We used a 5-Namibian JL5 catheter for left coronary angiography. For right coronary angiography, we used various catheters. We were able to achieve subselective but adequate angiogram of the right coronary artery with a 5-Namibian AL2 catheter. Catheters were removed. Angiography of the right femoral artery was carried out through the sheath. Mynx was used to achieve hemostasis. He tolerated the procedure well. HEMODYNAMICS: Pulmonary artery pressure was 49/25 with a mean of 33 mmHg. Mean pulmonary wedge pressure was 25 mmHg. Right ventricular pressure was 51/17. Right atrial mean pressure was 12 mmHg. Cardiac output by thermodilution was 4.9. Cardiac index by thermodilution was 2.19. Pulmonary vascular resistance was 1.7 Wood units. AORTIC ROOT ANGIOGRAPHY: Aortic root angiography indicated significant dilatation of the ascending aorta. The aortic valve is heavily calcified and the excursion is diminished. There is mild to moderate aortic regurgitation. CORONARY ANGIOGRAPHY: Left main coronary artery, left anterior descending artery, circumflex artery, right coronary artery, exhibit angiographically minor plaques. No significant obstructive disease is seen. Right coronary artery is dominant. CONCLUSIONS: 1. Minimal coronary artery disease. 2. Aneurysmal dilatation of the ascending aorta. 3. Severe aortic stenosis (valve area 0.5 cm2 and a mean gradient 71 mmHg on echocardiography of 11/01/2018). 4. Mild to moderate aortic regurgitation. 5. Elevated pulmonary wedge pressure and right heart pressures DISCUSSION AND RECOMMENDATIONS: Based on results of this study, and given symptoms of congestive heart failure he is being referred for consideration of aortic valve replacement. Ascending aortic repair would also need to be considered. We reviewed this issue with him and his in detail. Job ID: [id number] DocumentID: [id number] Dictated Date: 11/21/2018 09:33:25 Past Due Accounts Clerk Date: 11/21/2018 11:59:10 Dictated By: TORRES MCKEON MD, MA, FACP, FACC, MTDD
== END 2018-11-21 14:15 | disposition home or self-care (01) ==
LOC: CATH 06:59 → SDC 10:00 → CATH 14:15
PROVIDERS: ATTEND Internal Medicine Cardiovascular Disease
DX: I35.2 Nonrheumatic aortic (valve) stenosis with insufficiency (principal); I71.2 Thoracic aortic aneurysm, without rupture; I25.10 Atherosclerotic heart disease of native coronary artery without angina pectoris; Z79.82 Long term (current) use of aspirin; Z79.899 Other long term (current) drug therapy; Z82.49 Family history of ischemic heart disease and other diseases of the circulatory system; Z84.1 Family history of disorders of kidney and ureter; Z80.9 Family history of malignant neoplasm, unspecified
CPT/HCPCS: 36415; 80053; 80061; 85027; 85610; 85730; 87081; 93456; 93567

== ENCOUNTER → 2019-01-05 | Outpatient (CLI) | payer BC ==
[~2019-01-05] MED LIST changes: -HEParin (CATH LAB) 2,000 ML IV ONE; -LIDOCAINE 1% INJ 20 ML 20 ML VIAL ONE; +MULT1TAB69 PO; -NS IV 1000 ML 1,000 ML ONE; +RED600CA2 PO
[2019-01-05 09:55] LABS: HEMOGLOBIN 13.8 G/DL (13.3-17.7); MEAN PLATELET VOLUME 10.6 FL (7.4-10.4); RED CELL DISTRIBUTION WIDTH 13.3 % (10.0-14.5); WHITE BLOOD COUNT 5.7 10^3/uL (4.3-11.0)
[2019-01-05 10:00] LABS: BILIRUBIN,URINE NEGATIVE (NEGATIVE); CLARITY,URINE CLEAR; COLOR,URINE YELLOW; GLUCOSE, URINE (UA) NEGATIVE (NEGATIVE); KETONES,URINE NEGATIVE (NEGATIVE); LEUKOCYTE ESTERASE ,URINE NEGATIVE (NEGATIVE); NITRITE,URINE NEGATIVE (NEGATIVE); PH,URINE 5 (5-9); PROTEIN,URINE NEGATIVE (NEGATIVE)
[2019-01-05 10:12] LABS: BACTERIA,URINE NEGATIVE /HPF; SQUAMOUS EPITHELIAL CELL,UR RARE /HPF
[2019-01-05 10:15] LABS: ALANINE AMINOTRANSFERASE 32 U/L (0-55); ALBUMIN 4.2 GM/DL (3.2-4.5); ALKALINE PHOSPHATASE 24 U/L (40-136); BILIRUBIN,TOTAL 0.9 MG/DL (0.1-1.0); BUN/CREATININE RATIO 18; CALCIUM 9.1 MG/DL (8.5-10.1); CARBON DIOXIDE 23 MMOL/L (21-32); CHLORIDE 107 MMOL/L (98-107); CREATININE SERUM 0.97 MG/DL (0.60-1.30); GFR ESTIMATED > 60; GLUCOSE 165 MG/DL (70-105); POTASSIUM 4.2 MMOL/L (3.6-5.0); SODIUM 139 MMOL/L (135-145); TOTAL PROTEIN 6.7 GM/DL (6.4-8.2)
--- NOTE | 2019-01-05 11:31 | Diagnostic Imaging Report ---
INDICATION: Preop for aortic stenosis. Time of exam 11:07 a.m. COMPARISON: Correlation is made with prior chest from 07/02/2010. FINDINGS: The heart is enlarged. Lungs appear to be fairly clear. No infiltrates are seen. There is no effusion or pneumothorax identified. IMPRESSION: Cardiomegaly. Dictated by: Dictated on workstation # [id number]
== END ==
LOC: LAB 09:27
PROVIDERS: ATTEND Thoracic Surgery (Cardiothoracic Vascular Surgery)
DX: Z01.810 Encounter for preprocedural cardiovascular examination (principal); Z01.818 Encounter for other preprocedural examination; I35.0 Nonrheumatic aortic (valve) stenosis; I71.2 Thoracic aortic aneurysm, without rupture; I51.7 Cardiomegaly
CPT/HCPCS: 36415; 71046; 80053; 81000; 85027; 87081; 93005

== ENCOUNTER → 2019-01-08 | Outpatient (CLI) | payer BC ==
[2019-01-08 13:19] LABS: ABG BASE EXCESS -1.5 MMOL/L (-2.5-2.5); ABG OXYGEN SATURATION 98 % (94-100); ABG PCO2 36 MMHG (35-45); ABG PH 7.41 (7.37-7.43); ABG PO2 87 MMHG (79-93); ABG TCO2 23.8 MMOL/L (21.0-31.0)
[2019-01-08 13:20] LABS: ALLENS TEST YES-POS
[2019-01-08 13:21] LABS: PATIENT TEMP 36.2; VENTILATOR NO
== END ==
LOC: LAB 12:59
PROVIDERS: ATTEND Thoracic Surgery (Cardiothoracic Vascular Surgery)
DX: Z01.812 Encounter for preprocedural laboratory examination (principal); Z01.810 Encounter for preprocedural cardiovascular examination; I35.0 Nonrheumatic aortic (valve) stenosis; I71.2 Thoracic aortic aneurysm, without rupture
CPT/HCPCS: 36600; 82805

== ENCOUNTER → 2019-04-16 | Outpatient (CLI) | payer BC | LOC: CARD 08:32 | PROVIDERS: ATTEND Nurse Practitioner Family | DX: I48.0 Paroxysmal atrial fibrillation (principal) | CPT/HCPCS: 93225; 93226 ==

== ENCOUNTER → 2020-01-14 | Outpatient (CLI) | payer BC ==
[~2020-01-14] MED LIST changes: +MULT-567 PO; -MULT1TAB69 PO
== END ==
LOC: CARD 09:00
PROVIDERS: ATTEND Internal Medicine Cardiovascular Disease
DX: I51.7 Cardiomegaly (principal); I35.0 Nonrheumatic aortic (valve) stenosis; I48.0 Paroxysmal atrial fibrillation; Z95.2 Presence of prosthetic heart valve
CPT/HCPCS: 93306

== ENCOUNTER → 2020-09-10 | Outpatient (CLI) | payer MEDICARE, OTHER ==
[~2020-09-10] VITALS: Ht 180.3 cm; Wt 106.2 kg
[~2020-09-10] MED LIST changes: +EPINEPHrine INJECTION 1 MG/ML AMP IM PRN; +[UNRECOGNIZED DRUG - OTHER] IV ONE; +diphenhydrAMINE 50 MG/ML INJ (BENADRYL) IV PRN
[2020-09-10 13:21] VITALS: BP 137/84
[2020-09-10 14:33] VITALS: BP 122/72
== END ==
LOC: INFUSION 13:11
PROVIDERS: ATTEND Nurse Practitioner Family
DX: Z23 Encounter for immunization (principal); U07.1 COVID-19

== ENCOUNTER → 2022-02-02 | Outpatient (CLI) | payer MEDICARE, OTHER ==
[~2022-02-02] MED LIST changes: -EPINEPHrine INJECTION 1 MG/ML AMP IM PRN; -[UNRECOGNIZED DRUG - OTHER] IV ONE; -diphenhydrAMINE 50 MG/ML INJ (BENADRYL) IV PRN
== END ==
LOC: CARD 12:25
PROVIDERS: ATTEND Internal Medicine Cardiovascular Disease
DX: I51.7 Cardiomegaly (principal); Z95.4 Presence of other heart-valve replacement
CPT/HCPCS: 93306

== ENCOUNTER → 2023-02-10 | Outpatient (CLI) | payer MEDICARE, OTHER ==
[~2023-02-10] MED LIST changes: +GADOTERATE 0.5 MMOL/ML (CLARISCAN) 20 ML VIAL IV ONE
--- NOTE | 2023-02-10 10:18 | Diagnostic Imaging Report ---
EXAMINATION: Magnetic resonance imaging of the right shoulder without and with intravenous contrast. DATE: February 10, 2023. COMPARISON: MRI right shoulder December 05, 2017. HISTORY: 62-year-old male, right shoulder pain. Palpable abnormality superior to the acromioclavicular joint. TECHNIQUE: Magnetic Resonance Imaging sequences were performed of the shoulder without and with intravenous contrast. FINDINGS: ROTATOR CUFF, LIGAMENTS, TENDONS, AND MUSCLES: There are anchor tracks in the humeral head which may relate to prior rotator cuff tendon repair. There is no evidence of failure of a rotator cuff tendon repair. There is increased signal and thickening of the supraspinatus, infraspinatus, and subscapularis tendons which may reflect tendinopathy and/or procedural related changes. There is minimal fluid along the myotendinous junction of infraspinatus. There is otherwise normal rotator cuff muscle bulk and signal. LONG HEAD OF BICEPS: There are probable findings of biceps tenodesis. Recommend correlation with past surgical history. The intra-articular segment of the proximal long head of the biceps tendon is not seen. GLENOHUMERAL JOINT: The humeral head is well positioned relative to the glenoid. The labrum is grossly intact. There is no identified paralabral cyst. There is mild glenohumeral cartilage thinning. There is no joint effusion. ACROMIOCLAVICULAR JOINT: There is widening of the acromioclavicular joint. The coracoclavicular and coracoacromial ligaments are intact. There are mild to moderate acromioclavicular degenerative changes with osteophytes extending approximately 2 to 3 mm below the joint margin. BONE: There is no os acromiale. There is no Hill-Sachs deformity. There are subcortical cystic changes in the superior humeral head. There are degenerative related marrow signal changes adjacent to the acromioclavicular joint. There is no acute fracture, bone contusion, or evidence of osteonecrosis. BURSAE AND SOFT TISSUES: There is a cystic nonenhancing mass superior to the distal clavicle which measures 3.1 x 1.9 x 1.8 cm in size. IMPRESSION: 1. Nonenhancing cystic mass superior to the distal clavicle in the region of the acromioclavicular joint which is a common location for a geyser; however, there is no prominent fluid in the subacromial/subdeltoid bursa or within the acromioclavicular joint. Considering this is not definitely a geyser, sampling and/or excision could be considered. 2. Status post rotator cuff tendon repair without evidence of failure of the rotator cuff tendon repair. Negative for a full-thickness rotator cuff tendon tear. 3. Probable post operative findings of biceps tenodesis. Recommend correlation with past surgical history. 4. Mild glenohumeral osteoarthritis. 5. Widening of the acromioclavicular joint and acromioclavicular degenerative changes with 2 to 3 mm undersurface osteophytes. 6. No acute fracture, bone contusion, or other notable bone marrow signal abnormality. Dictated by: Dictated on workstation # [id number]
== END ==
LOC: RAD 08:21
PROVIDERS: ATTEND Surgery
DX: M19.011 Primary osteoarthritis, right shoulder (principal); M25.711 Osteophyte, right shoulder; M25.811 Other specified joint disorders, right shoulder
CPT/HCPCS: 73223